=== PATIENT | male | born 1950 | race Caucasian/White ===

== ENCOUNTER 2016-11-01 21:31 | Observation (INO) | payer OTHER ==
[~2016-11-01 21:31] MED LIST: ASPI81TA82 PO; ATEN-100 PO; LISI-360 PO; MECL25 PO; PRAV10
[2016-11-01 21:34] VITALS: BP 120/73; PULSE 72; RESP 16; TEMP 98.6; O2SAT 95
--- NOTE | 2016-11-01 21:53 | PD ---
HPI Chief Complaint: Syncope/Near-Syncope Time Seen by Provider: 21:53 Travel History International Travel<30 days: No Contact w/Intl Traveler<30days: No Traveled to known affect area: No History of Present Illness HPI 66-year-old male with a history of hypertension, hyperlipidemia, CAD, CHF with pacemaker and defibrillator presents to the emergency department for evaluation of syncopal episode. The patient states that about 30 minutes prior to arrival he was outside in the backyard starting up the grill and he walked to the back door and was sliding on his shoes when he suddenly became lightheaded and passed out. States that he fell backward onto a table and is unsure whether he hit his head. The patient's states that she witnessed the syncopal event and states that he was unconscious for about 1 minute. States that when he woke up he was a little confused at first which resolved quickly. The patient is complaining of a headache, states he has had an intermittent headache for the last month. He states he has also had some nausea over the past week but denies any vomiting. Denies any chest pain, shortness of breath, difficulty breathing, abdominal pain, diarrhea, numbness or tingling, weakness, blurred vision, fever, chills, cough or cold symptoms. Denies anticoagulation. No other complaints. PFSH Past Medical History Cardiac Catheterization: Yes High Cholesterol: Yes Chest Pain: Yes Coronary Artery Disease: Yes Hypertension: Yes Myocardial Infarction: Yes (1995) Past Surgical History Pacemaker: Yes Social History Alcohol Use: Yes Tobacco Use: No Substance Use: No Allergies-Medications (Allergen,Severity, Reaction): Coded Allergies: Codeine (Verified Allergy, Unknown, 11/01/16) Reported Meds & Prescriptions Reported Meds & Active Scripts Active Reported Aspirin 81 Mg Chew 81 Mg CHEW DAILY Pravastatin 40 Mg Tab 40 Mg PO DAILY Atenolol 25 Mg Tab 25 Mg PO DAILY Lisinopril 10 Mg Tab 10 Mg PO DAILY Review of Systems Except as stated in HPI: all other systems reviewed are Neg Physical Exam Narrative GENERAL: Well-nourished and well-developed pleasant male patient in no acute distress who is nontoxic appearing. SKIN: Warm and dry. HEAD: Normocephalic and atraumatic. EYES: No injection, drainage, or hyphema noted. PERRLA. EOMI. ENT: No nasal drainage noted. Oropharynx is clear. NECK: Supple and the trachea is midline. CARDIOVASCULAR: Regular rate and rhythm. RESPIRATORY: Breath sounds are equal bilaterally with no accessory muscle use, wheezing, rhonchi, or crackles. GASTROINTESTINAL: Abdomen is soft, non-tender, and nondistended. MUSCULOSKELETAL: No obvious deformities, swelling, cyanosis, or ecchymosis is present throughout the upper and lower extremities. Patient has full range of motion without any signs of neurovascular compromise. Strength 5/5 upper and lower extremities equal bilaterally. NEUROLOGICAL: Awake, alert, and oriented. Normal speech and gait. Cranial nerves are grossly intact. Data Data Last Documented VS Vital Signs Date Time Temp Pulse Resp B/P Pulse Ox O2 Delivery O2 Flow Rate FiO2 11/01/16 22:07 18 96 Room Air 11/01/16 22:07 69 11/01/16 21:34 98.6 120/73 Orders Complete Blood Count With Diff (11/01/16 21:51) Comprehensive Metabolic Panel (11/01/16 21:51) Magnesium (Mg) (11/01/16 21:51) Ckmb (Isoenzyme) Profile (11/01/16 21:51) Troponin I (11/01/16 21:51) Act Partial Throm Time (Ptt) (11/01/16 21:51) Prothrombin Time / Inr (Pt) (11/01/16 21:51) Urinalysis - C+S If Indicated (11/01/16 21:51) Chest, Single Ap (11/01/16 21:51) Ct Brain W/O Iv Contrast(Rout) (11/01/16 21:51) Ecg Monitoring (11/01/16 21:51) Iv Access Insert/Monitor (11/01/16 21:51) Oximetry (11/01/16 21:51) Sodium Chloride 0.9% Flush (Ns Flush) (11/01/16 22:00) CKMB (11/01/16 22:00) CKMB% (11/01/16 22:00) Labs Laboratory Tests Test 11/01/16 22:00 White Blood Count 6.6 TH/MM3 Red Blood Count 4.10 MIL/MM3 Hemoglobin 12.0 GM/DL Hematocrit 34.0 % Mean Corpuscular Volume 82.8 FL Mean Corpuscular Hemoglobin 29.2 PG Mean Corpuscular Hemoglobin 35.2 % Concent Red Cell Distribution Width 14.6 % Platelet Count 196 TH/MM3 Mean Platelet Volume 7.9 FL Neutrophils (%) (Auto) 49.2 % Lymphocytes (%) (Auto) 36.2 % Monocytes (%) (Auto) 10.1 % Eosinophils (%) (Auto) 3.7 % Basophils (%) (Auto) 0.8 % Neutrophils # (Auto) 3.3 TH/MM3 Lymphocytes # (Auto) 2.4 TH/MM3 Monocytes # (Auto) 0.7 TH/MM3 Eosinophils # (Auto) 0.2 TH/MM3 Basophils # (Auto) 0.1 TH/MM3 CBC Comment AUTO DIFF Prothrombin Time 11.2 SEC Prothromb Time International 1.0 RATIO Ratio Activated Partial 27.3 SEC Thromboplast Time Sodium Level 134 MEQ/L Potassium Level 3.8 MEQ/L Chloride Level 101 MEQ/L Carbon Dioxide Level 26.7 MEQ/L Anion Gap 6 MEQ/L Blood Urea Nitrogen 16 MG/DL Creatinine 1.23 MG/DL Estimat Glomerular Filtration 59 ML/MIN Rate Random Glucose 112 MG/DL Calcium Level 8.1 MG/DL Magnesium Level 2.3 MG/DL Total Bilirubin 0.9 MG/DL Aspartate Amino Transf 42 U/L (AST/SGOT) Alanine Aminotransferase 59 U/L (ALT/SGPT) Alkaline Phosphatase 66 U/L Total Creatine Kinase 159 U/L Creatine Kinase MB 1.6 NG/ML Troponin I 0.13 NG/ML Total Protein 6.7 GM/DL Albumin 3.4 GM/DL MDM Medical Decision Making Medical Screen Exam Complete: Yes Emergency Medical Condition: Yes Differential Diagnosis Syncope versus electrolyte abnormality versus dehydration versus pacemaker defibrillator malfunction versus seizure Narrative Course 66-year-old male with a history of heart failure with pacemaker defibrillator implantation device presents to the emergency department for evaluation of syncopal event that occurred at home about 30 minutes prior to arrival. Patient is afebrile, vital signs are stable. Physical examination is unremarkable. EKG shows sinus rhythm with no acute ST elevations or depressions. IV access is obtained, labs were drawn and sent. Patient is placed on cardiac telemetry and pulse oximetry monitoring. [facility] was paged to come and interrogate the patient's device. CBC shows anemia with hemoglobin of 12.0, hematocrit 34.0, otherwise unremarkable. Coags are unremarkable. Head CT is negative. CMP is unremarkable. Troponin is elevated at 0.13. Likely secondary to AICD firing. [facility] interrogated the patient's device and found that the patient experienced 16 seconds of ventricular tachycardia and was shocked back into sinus rhythm. The patient will be kept under observation. Physician Communication Physician Communication I spoke with Dr. Amezcua [facility] who agrees to keep the patient under observation under Dr. Armenta's service. Diagnosis Primary Impression: AICD discharge Additional Impression: Syncope Qualified Code: R55 - Syncope, unspecified syncope type Admitting Information Admitting Physician Requests: Observation Marianne Miller Nov 01, 2016 21:53
[2016-11-01] MEDS ORDERED: SODIUM CHLORIDE 0.9% FLUSH 10 ML FLUSH IVF PRN (22:00)
[2016-11-01 22:07] VITALS: RESP 18; O2SAT 96
[2016-11-01] MEDS ORDERED: ASPI81CH CHEW (22:14)
[2016-11-01] MEDS ORDERED: LISI10TA3 PO (22:14)
[2016-11-01] MEDS ORDERED: PRAV40TA2 PO (22:14)
[2016-11-01] MEDS ORDERED: ATEN25TA PO (22:14)
[2016-11-01 22:27] LABS: AUTOMATED NEUTROPHIL # 3.3 TH/MM3 (1.8-7.7); BASOPHIL # 0.1 TH/MM3 (0-0.2); BASOPHIL % 0.8 % (0.0-2.0); EOSINOPHIL # 0.2 TH/MM3 (0-0.4); EOSINOPHIL % 3.7 % (0.0-4.0); LYMPH % 36.2 % (9.0-44.0); LYMPHOCYTE # 2.4 TH/MM3 (1.0-4.8); MEAN CELL VOLUME 82.8 FL (80.0-100.0); MEAN CORPUSCULAR HEMOGLOBIN 29.2 PG (27.0-34.0); MEAN CORPUSCULAR HGB CONC 35.2 % (32.0-36.0); MONO % 10.1 % (0.0-8.0); NEUT % 49.2 % (16.0-70.0); PLATELET COUNT 196 TH/MM3 (150-450); RED CELL DISTRIBUTION WIDTH 14.6 % (11.6-17.2); WHITE BLOOD COUNT 6.6 TH/MM3 (4.0-11.0)
[2016-11-01 22:28] LABS: HEMO FLAGS AUTO DIFF
[2016-11-01 22:36] LABS: APTT (PATIENT) 27.3 SEC (24.3-30.1); PROTHROMBIN TIME - PATIENT 11.2 SEC (9.8-11.6)
--- NOTE | 2016-11-01 22:41 | RADRPT ---
EXAM DATE/TIME: 11/01/2016 22:08 [facility] COMPARISON: CT BRAIN W/O CONTRAST, January 09, 2015, 12:01. INDICATIONS : Syncope. RADIATION DOSE: 56.35 CTDIvol (mGy) MEDICAL HISTORY : Hypertension. Congestive heart failure. SURGICAL HISTORY : Pacemaker. Defibrillator. ENCOUNTER: Initial ACUITY: 1 day PAIN SCALE: 0/10 LOCATION: cranial TECHNIQUE: Multiple contiguous axial images were obtained of the head. Using automated exposure control and adj ustment of the mA and/or kV according to patient size, radiation dose was kept as low as reasonably a chievable to obtain optimal diagnostic quality images. DICOM format image data is available electro nically for review and comparison. FINDINGS: CEREBRUM: The ventricles are normal for age. No evidence of midline shift, mass lesion, hemorrhage or acute in farction. No extra-axial fluid collections are seen. POSTERIOR FOSSA: The cerebellum and brainstem are intact. The 4th ventricle is midline. The cerebellopontine angle i s unremarkable. EXTRACRANIAL: The visualized portion of the orbits is intact. SKULL: The calvaria is intact. No evidence of skull fracture. CONCLUSION: No acute disease. Jean Chavez MD on November 01, 2016 at 22:37 Board Certified Radiologist. This report was verified electronically.
[2016-11-01 22:47] LABS: ANION GAP 6 MEQ/L (5-15); AST (GOT) 42 U/L (15-37); BICARBONATE 26.7 MEQ/L (21.0-32.0); BLOOD UREA NITROGEN 16 MG/DL (7-18); CHLORIDE 101 MEQ/L (98-107); GLOMERULAR FILTRATION RATE 59 ML/MIN (>89); MAGNESIUM 2.3 MG/DL (1.5-2.5); POTASSIUM 3.8 MEQ/L (3.5-5.1); SODIUM (NA) 134 MEQ/L (136-145)
[2016-11-01 22:48] LABS: ALT (GPT) 59 U/L (12-78)
[2016-11-01 22:52] LABS: ALKALINE PHOSPHATASE 66 U/L (45-117); CREATINE KINASE 159 U/L (39-308); TOTAL BILIRUBIN ADULT 0.9 MG/DL (0.2-1.0)
[2016-11-01 23:04] LABS: CKMB 1.6 NG/ML (0.5-3.6)
[2016-11-01 23:10] LABS: OVALOCYTES 1+ (NORMAL); PLATELET ESTIMATE SMEAR NORMAL (NORMAL); PLATELET MORPHOLOGY NORMAL (NORMAL)
[2016-11-01 23:11] LABS: ACANTHOCYTES OCC (NORMAL); SCAN/DIFF AUTO DIFF CONFIRMED
[2016-11-02] VITALS (7 sets, daily range): BP systolic 109–129; BP diastolic 64–73; PULSE 60–77; RESP 16–19; TEMP 98.7–99.9; O2SAT 94–96
--- NOTE | 2016-11-02 08:17 | HHI.HP ---
HPI Service [facility] Primary Care Physician Dr. Ignacio Admission Diagnosis AICD Discharge, Syncope Chief Complaint: Syncope Travel History International Travel<30 Days: No Contact w/Intl Traveler <30 Da: No Traveled to Known Affected Are: No History of Present Illness Mr. Cordon is a pleasant 66 y/o WM with HTN, CAD with hx of [place] in 1995, ischemic cardiomyopathy with EF 30-35% s/p AICD in 2004, and dyslipidemia. He presented to the ER at [facility] on 11/01/16 after a syncopal episode. The patient states that about 30 minutes prior to his arrival in the ED he was outside in the backyard starting up the grill and he walked to the back door when he suddenly became lightheaded and passed out. States that he fell backward onto a table and is unsure whether he hit his head. The patient's witnessed the syncopal event and states that he was unconscious for about 1 minute. States that when he woke up he was a little confused at first which resolved quickly. In the ED, [employer] interrogated the patient's device and found that the patient experienced 16 seconds of ventricular tachycardia and was shocked back into sinus rhythm. The patient reports that he has had an intermittent headache for the last month otherwise he has felt well. He states he has also had some nausea over the past week but denies any vomiting. Head CT in the ED with no acute changes. Cardiology has been consulted. Denies any chest pain, shortness of breath, difficulty breathing, abdominal pain, diarrhea , numbness or tingling, weakness, blurred vision, fever, chills, cough or cold symptoms. Pts Protozoology Teacher is Dr. Yates in [facility]. Review of Systems Constitutional: COMPLAINS OF: Dizziness Eyes: DENIES: Vision loss Ears, nose, mouth, throat: DENIES: Hearing loss Respiratory: DENIES: Shortness of breath Cardiovascular: DENIES: Chest pain, Palpitations Gastrointestinal: DENIES: Abdominal pain, Nausea, Vomiting Genitourinary: DENIES: Dysuria Musculoskeletal: DENIES: Back pain, Neck pain Integumentary: DENIES: Rash Neurologic: COMPLAINS OF: Headache, DENIES: Localized weakness, Paresthesias, Poor Balance Psychiatric: DENIES: Confusion Past Family Social History Past Medical History CAD with hx of [place] in 1995 HTN Hyperlipidemia Ischemic cardiomyopathy with EF 30-35% on echo in 2012 Tricuspid regurgitation Hx of colon polyps Past Surgical History Cardiac cath with angioplasty of RCA in 1995 AICD placement in 2004 Colonoscopy in 02/[address] Ramos Reported Medications Aspirin 81 Mg Chew 81 Mg CHEW DAILY Pravastatin 40 Mg Tab 40 Mg PO DAILY Atenolol 25 Mg Tab 25 Mg PO DAILY Lisinopril 10 Mg Tab 10 Mg PO DAILY Allergies: Coded Allergies: Codeine (Verified Allergy, Unknown, 11/01/16) Family History Father at 62 y/o from ACS Mother with hx of CAD Social History Denies any alcohol, tobacco or illicit drug use Pt works as a business and financial counsel Physical Exam Vital Signs Vital Signs Date Time Temp Pulse Resp B/P Pulse Ox O2 Delivery O2 Flow Rate FiO2 11/02/16 07:59 99.4 62 18 114/68 94 11/02/16 04:13 98.7 66 18 129/68 96 11/02/16 01:11 98.7 62 18 118/73 96 11/01/16 22:07 18 96 Room Air 11/01/16 22:07 69 16 96 Room Air 11/01/16 21:34 98.6 72 16 120/73 95 Room Air Physical Exam GENERAL: This is a well-nourished, well-developed patient, in no apparent distress. HEENT: Atraumatic. Normocephalic. No temporal or scalp tenderness.No scleral icterus. Airway patent. NECK: Trachea midline, supple, nontender. CARDIO: Regular RESP: CTA bilaterally. No wheezes, rales, or rhonchi. ABD: +BS, soft, non-tender, nondistended. EXT: Extremities without clubbing, cyanosis, or edema. No calf tenderness. NEURO: Awake and alert. Motor and sensory grossly within normal limits. Normal speech. Laboratory Laboratory Tests Test 11/01/16 11/02/16 22:00 04:07 White Blood Count 6.6 Red Blood Count 4.10 Hemoglobin 12.0 Hematocrit 34.0 Mean Corpuscular Volume 82.8 Mean Corpuscular Hemoglobin 29.2 Mean Corpuscular Hemoglobin 35.2 Concent Red Cell Distribution Width 14.6 Platelet Count 196 Mean Platelet Volume 7.9 Neutrophils (%) (Auto) 49.2 Lymphocytes (%) (Auto) 36.2 Monocytes (%) (Auto) 10.1 Eosinophils (%) (Auto) 3.7 Basophils (%) (Auto) 0.8 Neutrophils # (Auto) 3.3 Lymphocytes # (Auto) 2.4 Monocytes # (Auto) 0.7 Eosinophils # (Auto) 0.2 Basophils # (Auto) 0.1 CBC Comment AUTO DIFF Differential Comment AUTO DIFF CONFIRMED Platelet Estimate NORMAL Platelet Morphology Comment NORMAL Ovalocytes 1+ Acanthocytes OCC Prothrombin Time 11.2 Prothromb Time International 1.0 Ratio Activated Partial 27.3 Thromboplast Time Sodium Level 134 Potassium Level 3.8 Chloride Level 101 Carbon Dioxide Level 26.7 Anion Gap 6 Blood Urea Nitrogen 16 Creatinine 1.23 Estimat Glomerular Filtration 59 Rate Random Glucose 112 Calcium Level 8.1 Magnesium Level 2.3 Total Bilirubin 0.9 Aspartate Amino Transf 42 (AST/SGOT) Alanine Aminotransferase 59 (ALT/SGPT) Alkaline Phosphatase 66 Total Creatine Kinase 159 Creatine Kinase MB 1.6 Troponin I 0.13 0.28 Total Protein 6.7 Albumin 3.4 Result Diagram: 11/01/16219911/01/162199 Imaging Last Impressions Head CT 11/01/162150 Signed Impressions: Service Date/Time: Tuesday, November 01, 2016 22:08 - CONCLUSION: No acute disease. Jean Chavez MD Septic Shock Reassessment Heart: Regular rate and rhythm Lungs: Clear Skin: Warm Assessment and Plan Problem List: (1) AICD discharge Status: Acute Plan: - Pt is a 66 y/o WM with HTN, CAD with hx of [place] in 1995, ischemic cardiomyopathy with EF 30-35% s/p AICD in 2004, and dyslipidemia. - Pt presented to the ED after a syncopal episode. - In the ED, [employer] interrogated the patient's device and found that the patient experienced 16 seconds of ventricular tachycardia and was shocked back into sinus rhythm. - Head CT in the ED with no acute changes. - Troponin I is elevated as to be expected with AICD firing. - Cardiology has been consulted. - Home meds continued - Supportive care - Further recommendations as the case develops - DVT prophylaxis (2) Ischemic cardiomyopathy Status: Chronic Plan: - See above. (3) HTN (hypertension), benign Status: Chronic Plan: - Home meds resumed. (4) Dyslipidemia Status: Chronic Plan: - Home meds continued (5) CAD (coronary artery disease) Status: Chronic Assessment and Plan Patient examined. Assessment and plan formulated with Lela Veliz PA-C. I agree with the above. VT with aicd firing. bb increased. carley pending. d/c if negative. cardiology following. Lela Veliz Nov 02, 2016 08:17 Hamilton Armenta MD Nov 02, 2016 13:11
[2016-11-02] MEDS ORDERED: ATENOLOL 25 MG TAB PO SCH (09:00)
--- NOTE | 2016-11-02 09:04 | PD.CONS ---
HPI Service CV Consult Requested By Reason for Consult syncope/ICD discharge Primary Care Physician Non-Staff History of Present Illness Here with HTN, CAD with hx of [place] in 1995, ischemic cardiomyopathy with EF 30-35 % s/p AICD in 2004, and dyslipidemia for syncope. He states that yesterday afternoon he was in his back yard starting his grill when he suddenly lost consciousness. His witnessed this event. She states he was unconscious for about a minute and when he came to he was a bit confused. He denies any chest pain, palpitations or shortness of breath with this event. He states earlier that day his device was interrogated showing no events. Interrogation in the ER shows 16 beat VT and appropriate discharge and return to SR. Review of Systems Consitutional: DENIES: Fatigue, Fever, Chills, Weight gain, Weight loss Eyes: DENIES: Amaurosis Fugax, Change in vision HEENT: DENIES: Lightheadedness, Change in hearing Respiratory: DENIES: See HPI, Cough, Snoring, Shortness of breath, Wheezing, Sputum production Cardiovascular: COMPLAINS OF: See HPI Gastrointestinal: DENIES: Nausea, Vomiting, Change in bowel habits, Reflux, Bloody stools, Melena Genitourinary: DENIES: Urinary incontinence, Difficulty voiding Integumentary: DENIES: Rash Neurologic: DENIES: Tingling or numbness, Memory problems, Poor Balance, Stroke symptoms Musculoskeletal: DENIES: Joint pain, Muscle pain, Limited range of motion, Back pain Psychiatric: DENIES: Anxiety, Depression, Sleep disturbances Hematologic: DENIES: Bruising tendencies, Bleeding tendencies Endocrine: DENIES: Weight gain, Weight loss, Thyroid disease Past Family Social History Allergies: Coded Allergies: Codeine (Verified Allergy, Unknown, 11/01/16) Past Medical History CAD with hx of [place] in 1995 HTN Hyperlipidemia Ischemic cardiomyopathy with EF 30-35% on echo in 2012 Tricuspid regurgitation Hx of colon polyps Past Surgical History Cardiac cath with angioplasty of RCA in 1995 AICD placement in 2004 Colonoscopy in 02/[address] Ramos Reported Medications Reported Meds & Active Scripts Active Reported Aspirin 81 Mg Chew 81 Mg CHEW DAILY Pravastatin 40 Mg Tab 40 Mg PO DAILY Atenolol 25 Mg Tab 25 Mg PO DAILY Lisinopril 10 Mg Tab 10 Mg PO DAILY Active Ordered Medications Current Medications Medications (Trade) Dose Ordered Sig/Nimesh Route Start Time Stop Time Status Last Admin (NS Flush) 2 ml UNSCH PRN IVF 11/01/16 22:00 11/02/16 04:14 (Aspirin Chew) 81 mg DAILY CHEW 11/02/16 09:00 (Tenormin) 25 mg DAILY PO 11/02/16 09:00 (Prinivil) 10 mg DAILY PO 11/02/16 09:00 (Pravachol) 40 mg DAILY PO 11/02/16 09:00 Family History noncontributory Social History Denies any alcohol, tobacco or illicit drug use Physical Exam Vital Signs Vital Signs Date Time Temp Pulse Resp B/P Pulse Ox O2 Delivery O2 Flow Rate FiO2 11/02/16 07:59 99.4 62 18 114/68 94 11/02/16 04:13 98.7 66 18 129/68 96 11/02/16 01:11 98.7 62 18 118/73 96 11/01/16 22:07 18 96 Room Air 11/01/16 22:07 69 16 96 Room Air 11/01/16 21:34 98.6 72 16 120/73 95 Room Air Physical Exam GENERAL: Well-nourished, well-developed patient in no apparent distress. NECK: No JVD. No carotid bruit. CARDIOVASCULAR: Regular rate and rhythm. S1/S2 no murmur, rub, or gallop. RESPIRATORY: No accessory muscle use. Clear to auscultation. Breath sounds equal bilaterally. GASTROINTESTINAL: Abdomen soft, non-tender, nondistended. MUSCULOSKELETAL: Extremities without clubbing, cyanosis, or edema. Laboratory Laboratory Tests Test 11/01/16 11/02/16 22:00 04:07 White Blood Count 6.6 Red Blood Count 4.10 Hemoglobin 12.0 Hematocrit 34.0 Mean Corpuscular Volume 82.8 Mean Corpuscular Hemoglobin 29.2 Mean Corpuscular Hemoglobin 35.2 Concent Red Cell Distribution Width 14.6 Platelet Count 196 Mean Platelet Volume 7.9 Neutrophils (%) (Auto) 49.2 Lymphocytes (%) (Auto) 36.2 Monocytes (%) (Auto) 10.1 Eosinophils (%) (Auto) 3.7 Basophils (%) (Auto) 0.8 Neutrophils # (Auto) 3.3 Lymphocytes # (Auto) 2.4 Monocytes # (Auto) 0.7 Eosinophils # (Auto) 0.2 Basophils # (Auto) 0.1 CBC Comment AUTO DIFF Differential Comment AUTO DIFF CONFIRMED Platelet Estimate NORMAL Platelet Morphology Comment NORMAL Ovalocytes 1+ Acanthocytes OCC Prothrombin Time 11.2 Prothromb Time International 1.0 Ratio Activated Partial 27.3 Thromboplast Time Sodium Level 134 Potassium Level 3.8 Chloride Level 101 Carbon Dioxide Level 26.7 Anion Gap 6 Blood Urea Nitrogen 16 Creatinine 1.23 Estimat Glomerular Filtration 59 Rate Random Glucose 112 Calcium Level 8.1 Magnesium Level 2.3 Total Bilirubin 0.9 Aspartate Amino Transf 42 (AST/SGOT) Alanine Aminotransferase 59 (ALT/SGPT) Alkaline Phosphatase 66 Total Creatine Kinase 159 Creatine Kinase MB 1.6 Troponin I 0.13 0.28 Total Protein 6.7 Albumin 3.4 Result Diagram: 11/01/16219911/01/162199 Assessment and Plan Problem List: (1) AICD discharge (2) Ischemic cardiomyopathy Assessment and Plan We will increase the dose of his atenolol to 50 mg daily and get Lexiscan SPECT. If that is normal we will d/c home and have him f/u with his renal social worker in [place]. Lalito Rider Nov 02, 2016 09:04
[2016-11-02] MEDS: ASPIRIN 81 MG CHEW TAB CHEW SCH (09:50)
[2016-11-02] MEDS: PRAVASTATIN SOD 40 MG TAB PO SCH (09:50)
[2016-11-02] MEDS: LISINOPRIL 10 MG TAB PO SCH (09:51)
--- NOTE | 2016-11-02 19:16 | RADRPT ---
EXAM DATE/TIME: 11/01/2016 22:15 [facility] COMPARISON: CHEST SINGLE AP, January 09, 2015, 11:33. INDICATIONS : Syncopal episode. MEDICAL HISTORY : Myocardial infarction. SURGICAL HISTORY : Pacemaker. Cardiac ablasion. ENCOUNTER: Initial ACUITY: 1 day PAIN SCORE: 0/10 LOCATION: Bilateral chest FINDINGS: There is a pacing device in place from the left subclavian approach. The heart size is mildly enlarge d. The lungs are clear. CONCLUSION: Mild cardiomegaly. Jean Chavez MD on November 01, 2016 at 23:00 Board Certified Radiologist. This report was verified electronically.
--- NOTE | 2016-11-02 23:06 | EKG ---
Date Performed: 11/02/2016 Time Performed: 04:22:46 PTAGE: 66 years EKG: Sinus rhythm LOW QRS VOLTAGE IN PRECORDIAL LEADS SEPTAL MYOCARDIAL INFARCTION MODERATE T-WAVE ABNORMALITY ABNORMA L ECG PREVIOUS TRACING : 01/09/2015 18.50 Compared to prior tracing no significant change DOCTOR: Abner Deutsch Interpretating Date/Time 11/02/2016 23:05:13
--- NOTE | 2016-11-02 23:18 | EKG ---
Date Performed: 11/01/2016 Time Performed: 21:47:06 PTAGE: 66 years EKG: Sinus rhythm LOW QRS VOLTAGE IN PRECORDIAL LEADS ANTEROSEPTAL Q WAVES MODERATE T-WAVE ABNORMALITY ABNORMAL ECG NO PREVIOUS TRACING DOCTOR: Abner Deutsch Interpretating Date/Time 11/02/2016 23:16:56
[2016-11-02] MEDS ORDERED: ACETAMINOPHEN 325 MG TAB PO PRN (23:30)
[2016-11-03 00:58] VITALS: BP 123/67; PULSE 67; RESP 17; TEMP 99.9; O2SAT 92
[2016-11-03 05:40] VITALS: BP 106/66; PULSE 64; RESP 18; TEMP 98.7; O2SAT 94
[2016-11-03 07:22] VITALS: BP 116/70; PULSE 67; RESP 20; TEMP 98.3; O2SAT 95
[2016-11-03 08:00] VITALS: PULSE 73
[2016-11-03] MEDS ORDERED: REGADENOSON INJ 0.4 MG/5 ML SYR ONE (08:25)
--- NOTE | 2016-11-03 08:57 | HHI.PR ---
Subjective Remarks Pt going for the second part of his stress test this morning. He reports continued intermittent headaches but these are relived with Tylenol PRN Objective Vitals Vital Signs Date Time Temp Pulse Resp B/P Pulse Ox O2 Delivery O2 Flow Rate FiO2 11/03/16 07:22 98.3 67 20 116/70 95 11/03/16 05:40 98.7 64 18 106/66 94 11/03/16 00:58 99.9 67 17 123/67 92 11/02/16 21:59 99.4 77 16 113/67 94 11/02/16 15:00 65 11/02/16 14:50 63 11/02/16 14:50 99.9 64 18 117/71 94 11/02/16 11:37 99.5 60 19 109/64 95 Result Diagram: 11/01/16219911/01/162199 Other Results Laboratory Tests Test 11/01/16 11/02/16 22:00 04:07 White Blood Count 6.6 TH/MM3 Red Blood Count 4.10 MIL/MM3 Hemoglobin 12.0 GM/DL Hematocrit 34.0 % Mean Corpuscular Volume 82.8 FL Mean Corpuscular Hemoglobin 29.2 PG Mean Corpuscular Hemoglobin 35.2 % Concent Red Cell Distribution Width 14.6 % Platelet Count 196 TH/MM3 Mean Platelet Volume 7.9 FL Neutrophils (%) (Auto) 49.2 % Lymphocytes (%) (Auto) 36.2 % Monocytes (%) (Auto) 10.1 % Eosinophils (%) (Auto) 3.7 % Basophils (%) (Auto) 0.8 % Neutrophils # (Auto) 3.3 TH/MM3 Lymphocytes # (Auto) 2.4 TH/MM3 Monocytes # (Auto) 0.7 TH/MM3 Eosinophils # (Auto) 0.2 TH/MM3 Basophils # (Auto) 0.1 TH/MM3 CBC Comment AUTO DIFF Differential Comment AUTO DIFF CONFIRMED Platelet Estimate NORMAL Platelet Morphology Comment NORMAL Ovalocytes 1+ Acanthocytes OCC Prothrombin Time 11.2 SEC Prothromb Time International 1.0 RATIO Ratio Activated Partial 27.3 SEC Thromboplast Time Sodium Level 134 MEQ/L Potassium Level 3.8 MEQ/L Chloride Level 101 MEQ/L Carbon Dioxide Level 26.7 MEQ/L Anion Gap 6 MEQ/L Blood Urea Nitrogen 16 MG/DL Creatinine 1.23 MG/DL Estimat Glomerular Filtration 59 ML/MIN Rate Random Glucose 112 MG/DL Calcium Level 8.1 MG/DL Magnesium Level 2.3 MG/DL Total Bilirubin 0.9 MG/DL Aspartate Amino Transf 42 U/L (AST/SGOT) Alanine Aminotransferase 59 U/L (ALT/SGPT) Alkaline Phosphatase 66 U/L Total Creatine Kinase 159 U/L Creatine Kinase MB 1.6 NG/ML Troponin I 0.13 NG/ML 0.28 NG/ML Total Protein 6.7 GM/DL Albumin 3.4 GM/DL Imaging Last Impressions Head CT 11/01/162150 Signed Impressions: Service Date/Time: Tuesday, November 01, 2016 22:08 - CONCLUSION: No acute disease. Jean Chavez MD Objective Remarks General: NAD, AAOx3 Chest: CTA Cardiac: Regular Abd: +BS, soft ND/NT Ext: No edema A/P Problem List: (1) AICD discharge Status: Acute Plan: - Pt is a 66 y/o WM with HTN, CAD with hx of [place] in 1995, ischemic cardiomyopathy with EF 30-35% s/p AICD in 2004, and dyslipidemia. - Pt presented to the ED after a syncopal episode. - In the ED, Bond[facility] interrogated the patient's device and found that the patient experienced 16 seconds of ventricular tachycardia and was shocked back into sinus rhythm. - Head CT in the ED with no acute changes. - Troponin I is elevated as to be expected with AICD firing. - Appreciate Cardiology consultation - Cardiology recommended Atenolol dose to be increased to 50mg daily - Lexiscan is noted large fixed perfusion abnormality. - Patients Atenolol dose was increased to 50mg once daily. Pt is to monitor his blood pressure every morning prior to taking his BP medications and if his systolic blood pressure (top number) is at 100 or less DO NOT take the Atenolol. - Keep a log of your BP readings to bring to your [employer]. (2) Ischemic cardiomyopathy Status: Chronic Plan: - See above. (3) HTN (hypertension), benign Status: Chronic Plan: - Home meds resumed. (4) Dyslipidemia Status: Chronic Plan: - Home meds continued (5) CAD (coronary artery disease) Status: Chronic Assessment and Plan Patient examined. Assessment and plan formulated with Lela Birmingham PA-C. I agree with the above. carley fixed defect. double bb per cardiology recc f/u primary pest control chemical technician in [facility]...office called. pt eager for d/c Lela Veliz Nov 03, 2016 08:57 Hamilton Armenta MD Nov 03, 2016 11:01
[2016-11-03] MEDS ORDERED: ATENOLOL 50 MG TAB PO SCH (09:00)
--- NOTE | 2016-11-03 10:06 | RADRPT ---
EXAM DATE/TIME: 11/02/2016 10:28 [place] COMPARISON: No previous studies available for comparison. INDICATIONS : Syncope with ventricular tachycardia. Abnormal EKG. Coronary artery disease. DOSE: 30.3 mCi Tc99m Myoview at stress. 30.1 mCi Tc99m Myoview at rest. 0.4 mg Lexiscan STRESS SYMPTOMS: Shortness of breath. EJECTION FRACTION: 34% MEDICAL HISTORY : Hypertension. Cardiomyopathy. SURGICAL HISTORY : Hernia repair. ENCOUNTER: Initial ACUITY: 1 day PAIN SCALE: 0/10 LOCATION: Left chest TECHNIQUE: The patient underwent pharmacologic stress with infusion of prescribed dose. Continuous ECG tracing was monitored during stress. Gated SPECT imaging was performed after stress and conventional SPECT i maging was performed at rest. The examination was performed on a SPECT/CT scanner, both attenuation and non-corrected datasets were reviewed. FINDINGS: DISTRIBUTION: The maximum perfused segment at stress is in the lateral wall. PERFUSION STUDY: There is severely diminished relative perfusion to the entire septum, the majority of the anterior wa ll and the entire cardiac apex. GATED STUDY: Moderate left ventricular chamber dilatation is present with severe hypokinesis. CONCLUSION: Large severe fixed perfusion abnormality. RISK CATEGORY: High (>3% Annual Mortality Rate) Jean Ashraf MD on November 03, 2016 at 9:58 Board Certified Radiologist. This report was verified electronically.
[2016-11-03] MEDS ORDERED: ATEN25TA PO ×2 (10:16→10:56)
--- NOTE | 2016-11-03 10:22 | HHI.DCPOC ---
Discharge Care Plan Diagnosis: (1) AICD discharge (2) Syncope (3) HTN (hypertension), benign (4) Ischemic cardiomyopathy (5) Dyslipidemia (6) CAD (coronary artery disease) Goals to Promote Your Health - Patients Atenolol dose was increased to 50mg once daily. Pt is to monitor his blood pressure every morning prior to taking his BP medications and if his systolic blood pressure (top number) is at 100 or less DO NOT take the Atenolol. - Keep a log of your BP readings to bring to your [employer] Machine Operator. Directions to Meet Your Goals Take your medications as prescribed Follow your dietary instruction Follow activity as directed Keep your appointments as scheduled Take your immunizations and boosters as scheduled If your symptoms worsen call your PCP, if no PCP go to Urgent Care Center or Emergency Room Smoking is Dangerous to Your Health. Avoid second hand smoke Call the 24-hour hour crisis hotline for domestic abuse at Lela Veliz Nov 03, 2016 10:22
[2016-11-03] MEDS: ASPIRIN 81 MG CHEW TAB CHEW SCH (11:16)
[2016-11-03] MEDS: LISINOPRIL 10 MG TAB PO SCH (11:16)
[2016-11-03] MEDS: PRAVASTATIN SOD 40 MG TAB PO SCH (11:16)
== END 2016-11-03 12:42 | disposition home or self-care (01) ==
LOC: NEPC 21:31 → NEDA 23:07 → NEPGCP 11-02 00:52
PROVIDERS: ADMIT Hospitalist; ATTEND Hospitalist
DX: I47.2 Ventricular tachycardia (principal); R55 Syncope and collapse; I25.5 Ischemic cardiomyopathy; I11.0 Hypertensive heart disease with heart failure; I50.9 Heart failure, unspecified; R42 Dizziness and giddiness; R51 Headache; R11.0 Nausea; I07.1 Rheumatic tricuspid insufficiency; I51.7 Cardiomegaly; R94.31 Abnormal electrocardiogram [ECG] [EKG]; R06.02 Shortness of breath; D64.9 Anemia, unspecified; I25.2 Old myocardial infarction; E78.5 Hyperlipidemia, unspecified; I25.10 Atherosclerotic heart disease of native coronary artery without angina pectoris; E78.00 Pure hypercholesterolemia, unspecified; Z79.899 Other long term (current) drug therapy; Z79.82 Long term (current) use of aspirin; Z95.810 Presence of automatic (implantable) cardiac defibrillator; W19.XXXA Unspecified fall, initial encounter; Y92.007 Garden or yard of unspecified non-institutional (private) residence as the place of occurrence of the external cause
CPT/HCPCS: 70450; 71010; 78452; 80053; 82550; 82552; 83735; 84484; 85025; 85610; 85730; 93005; 93017; 99285; A9502; G0378; J2785